=== PATIENT | female | born 1935 | race Caucasian/White ===

== ENCOUNTER 2022-08-16 11:02 | Inpatient (IN) | payer MEDICARE, OTHER ==
[2022-08-16] MEDS ORDERED: Acetaminophen 650 MG Suppository PR PRN (11:32)
[2022-08-16] MEDS ORDERED: Bisacodyl 5 MG TAB PO PRN (11:32)
[2022-08-16] MEDS ORDERED: Sodium Chloride 0.65% Nasal 44 ML BOT EA NARE PRN (11:32)
[2022-08-16] MEDS ORDERED: Cepastat Lozenges 1 LOZ PO PRN (11:32)
[2022-08-16] MEDS ORDERED: Bisacodyl 10 MG SUPP PR PRN (11:32)
[2022-08-16] MEDS ORDERED: Guaifenesin DM 100-10/5 ML UDCUP PO PRN (11:32)
[2022-08-16] MEDS ORDERED: Ondansetron ODT 4 MG TAB SL PRN (11:32)
[2022-08-16] MEDS ORDERED: Artificial Tear Sol 15 ML BOT EA EYE PRN (11:32)
[2022-08-16] MEDS ORDERED: cloNIDine 0.1 MG TAB PO PRN (11:32)
[2022-08-16] MEDS ORDERED: Ipratropium/Albuterol 3 ML NEB NEB PRN (13:43)
[2022-08-16] MEDS ORDERED: Ondansetron ODT 4 MG TAB PO PRN (13:59)
[2022-08-16] MEDS: Rivaroxaban 10 MG TAB PO SCH (18:05)
[2022-08-16] MEDS: Gabapentin 100 MG CAP PO SCH (20:58)
[2022-08-16] MEDS: Atorvastatin Calcium 40 MG TAB PO SCH (20:58)
[2022-08-16] MEDS: Cefdinir 300 MG CAP PO SCH (20:59)
[2022-08-16] MEDS: Furosemide 40 MG TAB PO SCH (21:25)
[2022-08-17 05:56] LABS: #Basophils 0.1 thou/uL (0.0-0.2); #Lymphocytes 1.9 thou/uL (1.20-3.40); #Monocytes 1.1 thou/uL (0.11-0.59); #Neutrophils 6.4 thou/uL (1.40-6.50); %Basophils 1.2 % (0.0-1.0); %Eosinophils 9.3 % (0.0-10.0); %Lymphocytes 18.4 % (21.0-51.0); %Monocytes 10.2 % (0.0-10.0); %Neutrophils 60.9 % (42.0-75.0); Hemoglobin 11.9 g/dL (12.0-16.0); Mean Corpuscular HGB CONC 32.4 g/dL (32.0-36.0); Mean Corpuscular Hemoglobin 27.3 pg (27.0-31.0); Mean Corpuscular Volume 84.1 fl (78.0-98.0); Mean Platelet Volume 7.9 fL (7.4-10.4); Platelet Count 375 10x3/uL (130-400); RBC Distribution Width 18.5 % (11.5-14.5); Red Blood Cell (RBC) Count 4.37 mill/uL (4.20-5.40); White Blood Cell (WBC) Count 10.5 10x3/uL (4.8-10.8)
[2022-08-17 06:08] LABS: Anion Gap 16 mmol/L (10-20); BUN (Urea Nitrogen) 28 mg/dL (9.8-20.1); Calc. Creatinine Clearance 43 mL/min (70-130); Calcium 9.4 mg/dL (7.8-10.44); Carbon Dioxide 28 mmol/L (23-31); Chloride 96 mmol/L (98-107); Estimated GFR 57; Glucose 103 mg/dL (83-110); Potassium 3.5 mmol/L (3.5-5.1); Sodium 136 mmol/L (136-145)
[2022-08-17] MEDS: Atenolol 25 MG TAB PO SCH (09:14)
[2022-08-17] MEDS: Cefdinir 300 MG CAP PO SCH ×2 (09:15→20:41)
[2022-08-17] MEDS: Gabapentin 100 MG CAP PO SCH ×2 (09:15→20:42)
[2022-08-17] MEDS: Furosemide 40 MG TAB PO SCH ×2 (09:16→15:52)
[2022-08-17] MEDS: Rivaroxaban 10 MG TAB PO SCH (17:00)
[2022-08-17] MEDS: Atorvastatin Calcium 40 MG TAB PO SCH (20:42)
[2022-08-18] MEDS: Furosemide 40 MG TAB PO SCH ×2 (06:16→14:42)
[2022-08-18] MEDS: Cefdinir 300 MG CAP PO SCH (08:18)
[2022-08-18] MEDS: Gabapentin 100 MG CAP PO SCH ×2 (08:18→21:22)
[2022-08-18] MEDS: Atenolol 25 MG TAB PO SCH (08:19)
[2022-08-18] MEDS: Rivaroxaban 10 MG TAB PO SCH (16:48)
[2022-08-18] MEDS: Atorvastatin Calcium 40 MG TAB PO SCH (21:22)
[2022-08-19] MEDS: Furosemide 40 MG TAB PO SCH ×3 (05:11→15:42)
[2022-08-19] MEDS: Senokot S 8.6-50 MG TAB PO PRN (06:09)
[2022-08-19] MEDS: Gabapentin 100 MG CAP PO SCH ×2 (08:09→20:29)
[2022-08-19] MEDS: Atenolol 25 MG TAB PO SCH (08:10)
[2022-08-19] MEDS ORDERED: Acetaminophen 325 MG TAB ONE ×2 (16:38)
[2022-08-19] MEDS: Acetaminophen 325 MG TAB PO PRN (16:41)
[2022-08-19] MEDS: Rivaroxaban 10 MG TAB PO SCH (16:42)
[2022-08-19] MEDS: Atorvastatin Calcium 40 MG TAB PO SCH (20:30)
[2022-08-20] MEDS: Furosemide 40 MG TAB PO SCH ×2 (05:16→14:34)
[2022-08-20] MEDS: Atenolol 25 MG TAB PO SCH (09:32)
[2022-08-20] MEDS: Gabapentin 100 MG CAP PO SCH ×2 (09:33→21:08)
[2022-08-20] MEDS: Rivaroxaban 10 MG TAB PO SCH (17:07)
[2022-08-20] MEDS: Atorvastatin Calcium 40 MG TAB PO SCH (21:08)
[2022-08-20] MEDS: Clotrimazole 1% Cream 15 GM TUBE TOP SCH (21:09)
[2022-08-21] MEDS: Furosemide 40 MG TAB PO SCH ×2 (06:06→13:55)
[2022-08-21] MEDS: Atenolol 25 MG TAB PO SCH (08:26)
[2022-08-21] MEDS: Gabapentin 100 MG CAP PO SCH ×2 (08:27→20:17)
[2022-08-21] MEDS: Clotrimazole 1% Cream 15 GM TUBE TOP SCH ×2 (08:28→20:21)
[2022-08-21] MEDS: Acetaminophen 325 MG TAB PO PRN (16:10)
[2022-08-21] MEDS: Rivaroxaban 10 MG TAB PO SCH (16:10)
[2022-08-21] MEDS: Atorvastatin Calcium 40 MG TAB PO SCH (20:16)
[2022-08-21] MEDS: traMADol HCl 50 MG TAB PO PRN (20:16)
[2022-08-22] MEDS: Furosemide 40 MG TAB PO SCH ×2 (05:30→13:45)
[2022-08-22] MEDS: Atenolol 25 MG TAB PO SCH (08:09)
[2022-08-22] MEDS: Gabapentin 100 MG CAP PO SCH ×2 (08:09→21:09)
[2022-08-22] MEDS: Clotrimazole 1% Cream 15 GM TUBE TOP SCH ×2 (08:10→21:09)
[2022-08-22] MEDS: Acetaminophen 325 MG TAB PO PRN (13:45)
[2022-08-22] MEDS: Rivaroxaban 10 MG TAB PO SCH (17:52)
[2022-08-22] MEDS: Atorvastatin Calcium 40 MG TAB PO SCH (21:09)
[2022-08-23] MEDS: Furosemide 40 MG TAB PO SCH ×2 (05:24→14:16)
[2022-08-23 06:08] LABS: Hemoglobin 10.8 g/dL (12.0-16.0); Platelet Count 410 10x3/uL (130-400)
[2022-08-23] MEDS: Gabapentin 100 MG CAP PO SCH ×2 (08:13→20:03)
[2022-08-23] MEDS: Atenolol 25 MG TAB PO SCH (08:14)
[2022-08-23] MEDS: Clotrimazole 1% Cream 15 GM TUBE TOP SCH ×2 (08:15→20:31)
[2022-08-23] MEDS: Acetaminophen 325 MG TAB PO PRN (16:53)
[2022-08-23] MEDS: Rivaroxaban 10 MG TAB PO SCH (16:55)
[2022-08-23] MEDS: traMADol HCl 50 MG TAB PO PRN (19:42)
[2022-08-23] MEDS: Atorvastatin Calcium 40 MG TAB PO SCH (20:04)
[2022-08-24] MEDS: Furosemide 40 MG TAB PO SCH ×2 (06:35→14:36)
[2022-08-24] MEDS: Atenolol 25 MG TAB PO SCH (08:23)
[2022-08-24] MEDS: Gabapentin 100 MG CAP PO SCH ×2 (08:23→20:14)
[2022-08-24] MEDS: Clotrimazole 1% Cream 15 GM TUBE TOP SCH ×2 (08:24→20:15)
[2022-08-24] MEDS: Rivaroxaban 10 MG TAB PO SCH (17:03)
[2022-08-24] MEDS: Atorvastatin Calcium 40 MG TAB PO SCH (20:14)
[2022-08-24] MEDS: Acetaminophen 325 MG TAB PO PRN (23:13)
[2022-08-25] MEDS: Furosemide 40 MG TAB PO SCH ×2 (06:12→14:17)
[2022-08-25] MEDS: Clotrimazole 1% Cream 15 GM TUBE TOP SCH ×2 (08:13→20:47)
[2022-08-25] MEDS: Atenolol 25 MG TAB PO SCH (08:14)
[2022-08-25] MEDS: Gabapentin 100 MG CAP PO SCH ×2 (08:14→20:50)
[2022-08-25] MEDS: Rivaroxaban 10 MG TAB PO SCH (16:13)
[2022-08-25] MEDS: Atorvastatin Calcium 40 MG TAB PO SCH (20:47)
[2022-08-25] MEDS: Nystatin Powder 15 GM BOT TOP SCH (20:47)
[2022-08-25] MEDS: Acetaminophen 325 MG TAB PO PRN (22:33)
[2022-08-26] MEDS: Furosemide 40 MG TAB PO SCH ×2 (06:00→14:08)
[2022-08-26 07:05] LABS: #Basophils 0.1 thou/uL (0.0-0.2); #Eosinphils 1.1 thou/uL (0.0-0.7); #Lymphocytes 2.2 thou/uL (1.20-3.40); #Monocytes 0.9 thou/uL (0.11-0.59); #Neutrophils 3.8 thou/uL (1.40-6.50); %Basophils 1.5 % (0.0-1.0); %Eosinophils 13.8 % (0.0-10.0); %Monocytes 11.3 % (0.0-10.0); %Neutrophils 46.3 % (42.0-75.0); Mean Corpuscular HGB CONC 30.7 g/dL (32.0-36.0); Mean Corpuscular Hemoglobin 26.9 pg (27.0-31.0); Mean Corpuscular Volume 87.6 fl (78.0-98.0); Mean Platelet Volume 7.6 fL (7.4-10.4); Platelet Count 443 10x3/uL (130-400); RBC Distribution Width 18.6 % (11.5-14.5); Red Blood Cell (RBC) Count 4.11 mill/uL (4.20-5.40); White Blood Cell (WBC) Count 8.2 10x3/uL (4.8-10.8)
[2022-08-26 07:09] LABS: Anion Gap 14 mmol/L (10-20); BUN (Urea Nitrogen) 20 mg/dL (9.8-20.1); Calc. Creatinine Clearance 46 mL/min (70-130); Calcium 8.8 mg/dL (7.8-10.44); Chloride 102 mmol/L (98-107); Estimated GFR 59; Glucose 91 mg/dL (83-110); Potassium 3.4 mmol/L (3.5-5.1)
[2022-08-26 07:16] LABS: Carbon Dioxide 25 mmol/L (23-31); Sodium 138 mmol/L (136-145)
[2022-08-26] MEDS: Gabapentin 100 MG CAP PO SCH ×2 (08:05→20:06)
[2022-08-26] MEDS: Clotrimazole 1% Cream 15 GM TUBE TOP SCH ×2 (08:06→20:06)
[2022-08-26] MEDS: Atenolol 25 MG TAB PO SCH (08:06)
[2022-08-26] MEDS: Nystatin Powder 15 GM BOT TOP SCH ×2 (08:06→20:08)
[2022-08-26] MEDS: Senokot S 8.6-50 MG TAB PO PRN (14:08)
[2022-08-26] MEDS: Rivaroxaban 10 MG TAB PO SCH (17:00)
[2022-08-26] MEDS: Atorvastatin Calcium 40 MG TAB PO SCH (20:06)
[2022-08-27] MEDS: Furosemide 40 MG TAB PO SCH ×2 (05:19→14:25)
[2022-08-27] MEDS: Nystatin Powder 15 GM BOT TOP SCH ×2 (07:37→20:53)
[2022-08-27] MEDS: Clotrimazole 1% Cream 15 GM TUBE TOP SCH ×2 (07:37→20:53)
[2022-08-27] MEDS: Atenolol 25 MG TAB PO SCH (07:41)
[2022-08-27] MEDS: Gabapentin 100 MG CAP PO SCH ×2 (07:42→20:54)
[2022-08-27] MEDS: Rivaroxaban 10 MG TAB PO SCH (17:30)
[2022-08-27] MEDS: Atorvastatin Calcium 40 MG TAB PO SCH (20:54)
[2022-08-28 05:31] LABS: #Basophils 0.1 thou/uL (0.0-0.2); #Eosinphils 0.9 thou/uL (0.0-0.7); #Monocytes 1.2 thou/uL (0.11-0.59); #Neutrophils 5.9 thou/uL (1.40-6.50); %Basophils 1.3 % (0.0-1.0); %Eosinophils 8.5 % (0.0-10.0); %Lymphocytes 19.7 % (21.0-51.0); %Monocytes 11.6 % (0.0-10.0); %Neutrophils 58.9 % (42.0-75.0); Mean Corpuscular HGB CONC 31.8 g/dL (32.0-36.0); Mean Corpuscular Hemoglobin 27.2 pg (27.0-31.0); Mean Corpuscular Volume 85.6 fl (78.0-98.0); Mean Platelet Volume 7.9 fL (7.4-10.4); Platelet Count 400 10x3/uL (130-400); RBC Distribution Width 17.8 % (11.5-14.5); Red Blood Cell (RBC) Count 4.04 mill/uL (4.20-5.40); White Blood Cell (WBC) Count 10.1 10x3/uL (4.8-10.8)
[2022-08-28 05:42] LABS: Anion Gap 14 mmol/L (10-20); BUN (Urea Nitrogen) 21 mg/dL (9.8-20.1); Calc. Creatinine Clearance 49 mL/min (70-130); Calcium 8.9 mg/dL (7.8-10.44); Carbon Dioxide 27 mmol/L (23-31); Chloride 100 mmol/L (98-107); Estimated GFR 63; Glucose 98 mg/dL (83-110); Potassium 3.5 mmol/L (3.5-5.1); Sodium 137 mmol/L (136-145)
[2022-08-28] MEDS: Furosemide 40 MG TAB PO SCH ×2 (05:42→13:50)
[2022-08-28] MEDS: Gabapentin 100 MG CAP PO SCH ×2 (08:19→20:38)
[2022-08-28] MEDS: Atenolol 25 MG TAB PO SCH (08:20)
[2022-08-28] MEDS: Nystatin Powder 15 GM BOT TOP SCH ×2 (08:56→20:38)
[2022-08-28] MEDS: Clotrimazole 1% Cream 15 GM TUBE TOP SCH ×2 (08:57→20:38)
[2022-08-28] MEDS: Acetaminophen 325 MG TAB PO PRN (13:50)
[2022-08-28] MEDS: Calcium Carbonate 500 MG ChewTAB PO PRN (15:21)
[2022-08-28] MEDS: Rivaroxaban 10 MG TAB PO SCH (16:08)
[2022-08-28] MEDS: Atorvastatin Calcium 40 MG TAB PO SCH (20:39)
[2022-08-29] MEDS: Furosemide 40 MG TAB PO SCH ×2 (05:43→13:12)
[2022-08-29] MEDS: Atenolol 25 MG TAB PO SCH (08:17)
[2022-08-29] MEDS: Gabapentin 100 MG CAP PO SCH ×2 (08:17→21:45)
[2022-08-29] MEDS: Clotrimazole 1% Cream 15 GM TUBE TOP SCH ×2 (08:17→21:46)
[2022-08-29] MEDS: Nystatin Powder 15 GM BOT TOP SCH (08:18)
[2022-08-29] MEDS: Acetaminophen 325 MG TAB PO PRN (13:10)
[2022-08-29] MEDS: Rivaroxaban 10 MG TAB PO SCH (17:52)
[2022-08-29] MEDS: Atorvastatin Calcium 40 MG TAB PO SCH (21:46)
[2022-08-30] MEDS: Nystatin Powder 15 GM BOT TOP SCH ×3 (00:03→20:22)
[2022-08-30] MEDS: Acetaminophen 325 MG TAB PO PRN ×2 (00:07→19:33)
[2022-08-30] MEDS: Furosemide 40 MG TAB PO SCH ×2 (05:55→13:20)
[2022-08-30 06:03] LABS: #Basophils 0.1 thou/uL (0.0-0.2); #Eosinphils 0.9 thou/uL (0.0-0.7); #Lymphocytes 2.1 thou/uL (1.20-3.40); #Monocytes 1.2 thou/uL (0.11-0.59); #Neutrophils 5.8 thou/uL (1.40-6.50); %Basophils 1.3 % (0.0-1.0); %Monocytes 11.5 % (0.0-10.0); %Neutrophils 57.3 % (42.0-75.0); Hemoglobin 10.4 g/dL (12.0-16.0); Mean Corpuscular HGB CONC 31.6 g/dL (32.0-36.0); Mean Corpuscular Hemoglobin 27.2 pg (27.0-31.0); Mean Corpuscular Volume 86.1 fl (78.0-98.0); Platelet Count 397 10x3/uL (130-400); RBC Distribution Width 17.3 % (11.5-14.5); Red Blood Cell (RBC) Count 3.83 mill/uL (4.20-5.40); White Blood Cell (WBC) Count 10.1 10x3/uL (4.8-10.8)
[2022-08-30 06:18] LABS: Anion Gap 13 mmol/L (10-20); BUN (Urea Nitrogen) 19 mg/dL (9.8-20.1); Calc. Creatinine Clearance 48 mL/min (70-130); Carbon Dioxide 26 mmol/L (23-31); Chloride 102 mmol/L (98-107); Potassium 3.4 mmol/L (3.5-5.1); Sodium 138 mmol/L (136-145)
[2022-08-30 06:19] LABS: Calcium 8.7 mg/dL (7.8-10.44); Estimated GFR 62; Glucose 91 mg/dL (83-110)
[2022-08-30] MEDS: Clotrimazole 1% Cream 15 GM TUBE TOP SCH ×2 (08:53→20:22)
[2022-08-30] MEDS: Gabapentin 100 MG CAP PO SCH ×2 (08:54→20:20)
[2022-08-30] MEDS: Atenolol 25 MG TAB PO SCH (08:55)
[2022-08-30] MEDS: Calcium Carbonate 500 MG ChewTAB PO PRN (13:20)
[2022-08-30] MEDS: Rivaroxaban 10 MG TAB PO SCH (17:43)
[2022-08-30] MEDS: Atorvastatin Calcium 40 MG TAB PO SCH (20:20)
[2022-08-30] MEDS: traMADol HCl 50 MG TAB PO PRN (20:21)
[2022-08-31] MEDS: Furosemide 40 MG TAB PO SCH ×2 (05:23→14:10)
[2022-08-31] MEDS ORDERED: traMADol HCl 50 MG TAB PO PRN (06:30)
[2022-08-31] MEDS: Gabapentin 100 MG CAP PO SCH ×2 (09:43→21:01)
[2022-08-31] MEDS: Atenolol 25 MG TAB PO SCH (09:43)
[2022-08-31] MEDS: Clotrimazole 1% Cream 15 GM TUBE TOP SCH ×2 (09:44→21:02)
[2022-08-31] MEDS: Nystatin Powder 15 GM BOT TOP SCH ×2 (09:44→21:02)
[2022-08-31 09:48] LABS: Anion Gap 16 mmol/L (10-20); BUN (Urea Nitrogen) 17 mg/dL (9.8-20.1); Calc. Creatinine Clearance 47 mL/min (70-130); Calcium 9.3 mg/dL (7.8-10.44); Carbon Dioxide 25 mmol/L (23-31); Chloride 99 mmol/L (98-107); Estimated GFR 60; Glucose 164 mg/dL (83-110); Potassium 3.8 mmol/L (3.5-5.1); Sodium 136 mmol/L (136-145)
[2022-08-31] MEDS: Calcium Carbonate 500 MG ChewTAB PO PRN (14:08)
[2022-08-31] MEDS: Rivaroxaban 10 MG TAB PO SCH (17:43)
[2022-08-31] MEDS: Atorvastatin Calcium 40 MG TAB PO SCH (21:02)
[2022-09-01] MEDS: Furosemide 40 MG TAB PO SCH ×2 (05:22→14:46)
[2022-09-01] MEDS: Gabapentin 100 MG CAP PO SCH ×2 (09:10→20:52)
[2022-09-01] MEDS: Atenolol 25 MG TAB PO SCH (09:10)
[2022-09-01] MEDS: Clotrimazole 1% Cream 15 GM TUBE TOP SCH ×2 (09:14→20:46)
[2022-09-01] MEDS: Nystatin Powder 15 GM BOT TOP SCH ×2 (09:15→20:46)
[2022-09-01] MEDS: Rivaroxaban 10 MG TAB PO SCH (17:12)
[2022-09-01] MEDS: Atorvastatin Calcium 40 MG TAB PO SCH (20:52)
[2022-09-02] MEDS: Furosemide 40 MG TAB PO SCH ×2 (05:36→14:03)
[2022-09-02 06:05] LABS: #Basophils 0.1 thou/uL (0.0-0.2); #Eosinphils 0.9 thou/uL (0.0-0.7); #Lymphocytes 1.8 thou/uL (1.20-3.40); #Monocytes 0.9 thou/uL (0.11-0.59); #Neutrophils 4.9 thou/uL (1.40-6.50); %Basophils 1.2 % (0.0-1.0); %Eosinophils 10.4 % (0.0-10.0); %Lymphocytes 21.2 % (21.0-51.0); %Monocytes 10.5 % (0.0-10.0); %Neutrophils 56.7 % (42.0-75.0); Hemoglobin 10.8 g/dL (12.0-16.0); Mean Corpuscular HGB CONC 30.9 g/dL (32.0-36.0); Mean Corpuscular Volume 87.2 fl (78.0-98.0); Mean Platelet Volume 7.5 fL (7.4-10.4); Platelet Count 380 10x3/uL (130-400); RBC Distribution Width 17.7 % (11.5-14.5); White Blood Cell (WBC) Count 8.6 10x3/uL (4.8-10.8)
[2022-09-02 06:26] LABS: Anion Gap 12 mmol/L (10-20); BUN (Urea Nitrogen) 13 mg/dL (9.8-20.1); Calc. Creatinine Clearance 56 mL/min (70-130); Carbon Dioxide 25 mmol/L (23-31); Chloride 105 mmol/L (98-107); Estimated GFR 74; Glucose 100 mg/dL (83-110); Potassium 3.6 mmol/L (3.5-5.1); Sodium 138 mmol/L (136-145)
[2022-09-02] MEDS: Atenolol 25 MG TAB PO SCH (09:25)
[2022-09-02] MEDS: Gabapentin 100 MG CAP PO SCH ×2 (09:26→20:41)
[2022-09-02] MEDS: Clotrimazole 1% Cream 15 GM TUBE TOP SCH ×2 (09:27→20:42)
[2022-09-02] MEDS: Nystatin Powder 15 GM BOT TOP SCH ×2 (09:27→20:41)
[2022-09-02] MEDS: Acetaminophen 325 MG TAB PO PRN (11:35)
[2022-09-02] MEDS: Calcium Carbonate 500 MG ChewTAB PO PRN ×2 (14:10→22:17)
[2022-09-02] MEDS: Rivaroxaban 10 MG TAB PO SCH (17:33)
[2022-09-02] MEDS: Atorvastatin Calcium 40 MG TAB PO SCH (20:41)
[2022-09-03] MEDS: Furosemide 40 MG TAB PO SCH ×2 (05:14→13:11)
[2022-09-03] MEDS: Gabapentin 100 MG CAP PO SCH ×2 (08:42→20:54)
[2022-09-03] MEDS: Atenolol 25 MG TAB PO SCH (08:42)
[2022-09-03] MEDS: Nystatin Powder 15 GM BOT TOP SCH ×2 (08:43→20:55)
[2022-09-03] MEDS: Clotrimazole 1% Cream 15 GM TUBE TOP SCH ×2 (08:43→20:55)
[2022-09-03] MEDS: Acetaminophen 325 MG TAB PO PRN (11:26)
[2022-09-03] MEDS: Rivaroxaban 10 MG TAB PO SCH (17:09)
[2022-09-03] MEDS: Atorvastatin Calcium 40 MG TAB PO SCH (20:54)
[2022-09-04] MEDS: Furosemide 40 MG TAB PO SCH ×2 (05:27→14:26)
[2022-09-04 06:02] LABS: #Basophils 0.1 thou/uL (0.0-0.2); #Eosinphils 0.9 thou/uL (0.0-0.7); #Neutrophils 5.4 thou/uL (1.40-6.50); %Basophils 1.1 % (0.0-1.0); %Eosinophils 9.3 % (0.0-10.0); %Lymphocytes 21.3 % (21.0-51.0); %Monocytes 10.6 % (0.0-10.0); %Neutrophils 57.7 % (42.0-75.0); Hemoglobin 11.1 g/dL (12.0-16.0); Mean Corpuscular HGB CONC 31.8 g/dL (32.0-36.0); Mean Corpuscular Hemoglobin 27.4 pg (27.0-31.0); Mean Corpuscular Volume 86.3 fl (78.0-98.0); Mean Platelet Volume 7.7 fL (7.4-10.4); Platelet Count 371 10x3/uL (130-400); RBC Distribution Width 17.8 % (11.5-14.5); Red Blood Cell (RBC) Count 4.03 mill/uL (4.20-5.40); White Blood Cell (WBC) Count 9.4 10x3/uL (4.8-10.8)
[2022-09-04 06:19] LABS: Anion Gap 13 mmol/L (10-20); BUN (Urea Nitrogen) 18 mg/dL (9.8-20.1); Calc. Creatinine Clearance 53 mL/min (70-130); Calcium 8.8 mg/dL (7.8-10.44); Carbon Dioxide 25 mmol/L (23-31); Chloride 104 mmol/L (98-107); Estimated GFR 69; Glucose 102 mg/dL (83-110); Potassium 3.6 mmol/L (3.5-5.1); Sodium 138 mmol/L (136-145)
[2022-09-04] MEDS: Clotrimazole 1% Cream 15 GM TUBE TOP SCH ×2 (08:46→21:38)
[2022-09-04] MEDS: Nystatin Powder 15 GM BOT TOP SCH ×2 (08:46→21:38)
[2022-09-04] MEDS: Atenolol 25 MG TAB PO SCH (08:51)
[2022-09-04] MEDS: Gabapentin 100 MG CAP PO SCH ×2 (08:52→21:35)
[2022-09-04] MEDS: Rivaroxaban 10 MG TAB PO SCH (18:11)
[2022-09-04] MEDS: Senokot S 8.6-50 MG TAB PO PRN (18:12)
[2022-09-04] MEDS: Atorvastatin Calcium 40 MG TAB PO SCH (21:36)
[2022-09-05] MEDS: Furosemide 40 MG TAB PO SCH ×2 (05:59→13:43)
[2022-09-05] MEDS: Atenolol 25 MG TAB PO SCH (08:25)
[2022-09-05] MEDS: Gabapentin 100 MG CAP PO SCH ×2 (08:26→21:02)
[2022-09-05] MEDS: Clotrimazole 1% Cream 15 GM TUBE TOP SCH ×2 (08:28→21:01)
[2022-09-05] MEDS: Nystatin Powder 15 GM BOT TOP SCH ×2 (08:28→21:01)
[2022-09-05] MEDS: Acetaminophen 325 MG TAB PO PRN (13:43)
[2022-09-05] MEDS: Calcium Carbonate 500 MG ChewTAB PO PRN (13:45)
[2022-09-05] MEDS: Rivaroxaban 10 MG TAB PO SCH (16:40)
[2022-09-05] MEDS: Atorvastatin Calcium 40 MG TAB PO SCH (21:01)
[2022-09-06] MEDS: Furosemide 40 MG TAB PO SCH ×4 (05:27→13:52)
[2022-09-06 06:10] LABS: #Basophils 0.1 thou/uL (0.0-0.2); #Eosinphils 0.9 thou/uL (0.0-0.7); #Lymphocytes 2.3 thou/uL (1.20-3.40); #Monocytes 1.1 thou/uL (0.11-0.59); #Neutrophils 8.3 thou/uL (1.40-6.50); %Eosinophils 6.9 % (0.0-10.0); %Lymphocytes 17.9 % (21.0-51.0); %Monocytes 8.4 % (0.0-10.0); %Neutrophils 65.8 % (42.0-75.0); Hemoglobin 10.6 g/dL (12.0-16.0); Mean Corpuscular HGB CONC 30.9 g/dL (32.0-36.0); Mean Corpuscular Hemoglobin 27.1 pg (27.0-31.0); Mean Platelet Volume 7.8 fL (7.4-10.4); Platelet Count 362 10x3/uL (130-400); RBC Distribution Width 17.7 % (11.5-14.5); Red Blood Cell (RBC) Count 3.92 mill/uL (4.20-5.40); White Blood Cell (WBC) Count 12.6 10x3/uL (4.8-10.8)
[2022-09-06 06:27] LABS: Anion Gap 16 mmol/L (10-20); BUN (Urea Nitrogen) 24 mg/dL (9.8-20.1); Calc. Creatinine Clearance 52 mL/min (70-130); Calcium 8.8 mg/dL (7.8-10.44); Carbon Dioxide 21 mmol/L (23-31); Chloride 104 mmol/L (98-107); Estimated GFR 68; Glucose 102 mg/dL (83-110); Potassium 3.6 mmol/L (3.5-5.1); Sodium 137 mmol/L (136-145)
[2022-09-06] MEDS: Gabapentin 100 MG CAP PO SCH ×2 (08:55→20:09)
[2022-09-06] MEDS: Atenolol 25 MG TAB PO SCH (08:59)
[2022-09-06] MEDS: Nystatin Powder 15 GM BOT TOP SCH ×2 (08:59→20:10)
[2022-09-06] MEDS: Clotrimazole 1% Cream 15 GM TUBE TOP SCH ×2 (09:00→20:09)
[2022-09-06] MEDS: Acetaminophen 325 MG TAB PO PRN (13:51)
[2022-09-06] MEDS: Rivaroxaban 10 MG TAB PO SCH (16:19)
[2022-09-06] MEDS: Atorvastatin Calcium 40 MG TAB PO SCH (20:09)
[2022-09-07 05:42] LABS: #Basophils 0.1 thou/uL (0.0-0.2); #Eosinphils 0.9 thou/uL (0.0-0.7); #Monocytes 1.1 thou/uL (0.11-0.59); #Neutrophils 7.3 thou/uL (1.40-6.50); %Eosinophils 7.9 % (0.0-10.0); %Lymphocytes 17.4 % (21.0-51.0); %Monocytes 9.4 % (0.0-10.0); %Neutrophils 64.4 % (42.0-75.0); Hemoglobin 10.3 g/dL (12.0-16.0); Mean Corpuscular HGB CONC 30.8 g/dL (32.0-36.0); Mean Corpuscular Volume 87.6 fl (78.0-98.0); Platelet Count 337 10x3/uL (130-400); RBC Distribution Width 17.5 % (11.5-14.5); Red Blood Cell (RBC) Count 3.82 mill/uL (4.20-5.40); White Blood Cell (WBC) Count 11.4 10x3/uL (4.8-10.8)
[2022-09-07] MEDS: Furosemide 40 MG TAB PO SCH ×2 (05:46→13:53)
[2022-09-07 06:03] LABS: Anion Gap 12 mmol/L (10-20); BUN (Urea Nitrogen) 20 mg/dL (9.8-20.1); Calc. Creatinine Clearance 54 mL/min (70-130); Calcium 8.8 mg/dL (7.8-10.44); Carbon Dioxide 26 mmol/L (23-31); Chloride 106 mmol/L (98-107); Estimated GFR 70; Glucose 93 mg/dL (83-110); Potassium 3.6 mmol/L (3.5-5.1); Sodium 140 mmol/L (136-145)
[2022-09-07] MEDS: Nystatin Powder 15 GM BOT TOP SCH ×2 (08:27→20:48)
[2022-09-07] MEDS: Clotrimazole 1% Cream 15 GM TUBE TOP SCH ×2 (08:27→20:47)
[2022-09-07] MEDS: Gabapentin 100 MG CAP PO SCH ×2 (08:28→20:47)
[2022-09-07] MEDS: Atenolol 25 MG TAB PO SCH (08:29)
[2022-09-07] MEDS: Acetaminophen 325 MG TAB PO PRN (13:52)
[2022-09-07] MEDS: Rivaroxaban 10 MG TAB PO SCH (16:52)
[2022-09-07] MEDS: Atorvastatin Calcium 40 MG TAB PO SCH (20:47)
[2022-09-07] MEDS: Benzonatate 100 MG CAP PO PRN (20:50)
[2022-09-08] MEDS: Furosemide 40 MG TAB PO SCH ×2 (05:37→14:02)
[2022-09-08] MEDS: Clotrimazole 1% Cream 15 GM TUBE TOP SCH ×2 (08:13→20:18)
[2022-09-08] MEDS: Nystatin Powder 15 GM BOT TOP SCH ×2 (08:13→20:18)
[2022-09-08] MEDS: Gabapentin 100 MG CAP PO SCH ×2 (08:14→20:16)
[2022-09-08] MEDS: Atenolol 25 MG TAB PO SCH (08:15)
[2022-09-08] MEDS: Acetaminophen 325 MG TAB PO PRN (14:01)
[2022-09-08] MEDS: Calcium Carbonate 500 MG ChewTAB PO PRN (14:21)
[2022-09-08] MEDS: Rivaroxaban 10 MG TAB PO SCH (16:40)
[2022-09-08] MEDS: Benzonatate 100 MG CAP PO PRN (16:40)
[2022-09-08] MEDS: Atorvastatin Calcium 40 MG TAB PO SCH (20:17)
[2022-09-09] MEDS: Furosemide 40 MG TAB PO SCH ×2 (05:59→13:57)
[2022-09-09 06:20] LABS: Hemoglobin 10.8 g/dL (12.0-16.0); Mean Corpuscular HGB CONC 30.3 g/dL (32.0-36.0); Mean Corpuscular Hemoglobin 26.9 pg (27.0-31.0); Mean Corpuscular Volume 88.7 fl (78.0-98.0); Platelet Count 341 10x3/uL (130-400); RBC Distribution Width 17.8 % (11.5-14.5); Red Blood Cell (RBC) Count 4.02 mill/uL (4.20-5.40); White Blood Cell (WBC) Count 8.8 10x3/uL (4.8-10.8)
[2022-09-09 06:21] LABS: #Basophils 0.1 thou/uL (0.0-0.2); #Eosinphils 0.7 thou/uL (0.0-0.7); #Monocytes 0.8 thou/uL (0.11-0.59); #Neutrophils 5.1 thou/uL (1.40-6.50); %Basophils 1.4 % (0.0-1.0); %Eosinophils 8.3 % (0.0-10.0); %Lymphocytes 22.7 % (21.0-51.0); %Monocytes 9.6 % (0.0-10.0); Manual Diff?? NO; Mean Platelet Volume 7.7 fL (7.4-10.4)
[2022-09-09 06:34] LABS: Anion Gap 14 mmol/L (10-20); BUN (Urea Nitrogen) 17 mg/dL (9.8-20.1); Calc. Creatinine Clearance 54 mL/min (70-130); Chloride 104 mmol/L (98-107); Estimated GFR 72; Glucose 95 mg/dL (83-110); Potassium 3.9 mmol/L (3.5-5.1); Sodium 139 mmol/L (136-145)
[2022-09-09 06:35] LABS: Carbon Dioxide 25 mmol/L (23-31)
[2022-09-09] MEDS: Atenolol 25 MG TAB PO SCH (08:31)
[2022-09-09] MEDS: Gabapentin 100 MG CAP PO SCH ×2 (08:32→20:50)
[2022-09-09] MEDS: Clotrimazole 1% Cream 15 GM TUBE TOP SCH ×2 (08:32→20:50)
[2022-09-09] MEDS: Acetaminophen 325 MG TAB PO PRN (10:38)
[2022-09-09] MEDS: Rivaroxaban 10 MG TAB PO SCH (17:11)
[2022-09-09] MEDS: Atorvastatin Calcium 40 MG TAB PO SCH (20:51)
[2022-09-10] MEDS: Furosemide 40 MG TAB PO SCH ×2 (05:43→13:45)
[2022-09-10] MEDS: Gabapentin 100 MG CAP PO SCH ×2 (07:44→20:22)
[2022-09-10] MEDS: Atenolol 25 MG TAB PO SCH (07:45)
[2022-09-10] MEDS: Clotrimazole 1% Cream 15 GM TUBE TOP SCH ×2 (07:46→20:22)
[2022-09-10 13:19] VITALS: BMI 24.5
[2022-09-10] MEDS: Acetaminophen 325 MG TAB PO PRN (13:45)
[2022-09-10] MEDS: Calcium Carbonate 500 MG ChewTAB PO PRN (13:47)
[2022-09-10] MEDS: Rivaroxaban 10 MG TAB PO SCH (17:11)
[2022-09-10] MEDS: Atorvastatin Calcium 40 MG TAB PO SCH (20:22)
[2022-09-11] MEDS: Furosemide 40 MG TAB PO SCH (05:10)
[2022-09-11 06:09] LABS: #Basophils 0.1 thou/uL (0.0-0.2); #Eosinphils 0.6 thou/uL (0.0-0.7); #Lymphocytes 1.9 thou/uL (1.20-3.40); #Monocytes 0.8 thou/uL (0.11-0.59); #Neutrophils 3.8 thou/uL (1.40-6.50); %Basophils 1.6 % (0.0-1.0); %Eosinophils 7.9 % (0.0-10.0); %Lymphocytes 26.4 % (21.0-51.0); %Monocytes 11.5 % (0.0-10.0); %Neutrophils 52.6 % (42.0-75.0); Hemoglobin 10.7 g/dL (12.0-16.0); Mean Corpuscular Hemoglobin 27.4 pg (27.0-31.0); Mean Corpuscular Volume 85.6 fl (78.0-98.0); Mean Platelet Volume 7.6 fL (7.4-10.4); Platelet Count 350 10x3/uL (130-400); RBC Distribution Width 16.7 % (11.5-14.5); Red Blood Cell (RBC) Count 3.91 mill/uL (4.20-5.40); White Blood Cell (WBC) Count 7.3 10x3/uL (4.8-10.8)
[2022-09-11 06:29] LABS: Anion Gap 13 mmol/L (10-20); BUN (Urea Nitrogen) 25 mg/dL (9.8-20.1); Calc. Creatinine Clearance 52 mL/min (70-130); Calcium 8.9 mg/dL (7.8-10.44); Carbon Dioxide 27 mmol/L (23-31); Chloride 104 mmol/L (98-107); Estimated GFR 68; Glucose 94 mg/dL (83-110); Potassium 3.6 mmol/L (3.5-5.1); Sodium 140 mmol/L (136-145)
[2022-09-11 08:01] VITALS: BP 124/59; TEMP 98.2
[2022-09-11] MEDS: Gabapentin 100 MG CAP PO SCH (09:40)
[2022-09-11] MEDS: Atenolol 25 MG TAB PO SCH (09:41)
[2022-09-11] MEDS: Clotrimazole 1% Cream 15 GM TUBE TOP SCH (09:42)
== END 2022-09-11 13:33 | disposition home or self-care (01) | DRG 689 ==
LOC: NAV ACUTE 12:37
PROVIDERS: ADMIT Family Medicine; ATTEND Family Medicine
DX: N30.00 Acute cystitis without hematuria (principal); J18.9 Pneumonia, unspecified organism; Z20.822 Contact with and (suspected) exposure to COVID-19; I10 Essential (primary) hypertension; J45.909 Unspecified asthma, uncomplicated; R13.12 Dysphagia, oropharyngeal phase; I48.0 Paroxysmal atrial fibrillation; R21 Rash and other nonspecific skin eruption; R53.81 Other malaise; E78.2 Mixed hyperlipidemia; I69.391 Dysphagia following cerebral infarction; Z88.8 Allergy status to other drugs, medicaments and biological substances; Z79.899 Other long term (current) drug therapy; Z79.01 Long term (current) use of anticoagulants
CPT/HCPCS: 36415; 80048; 82565; 85014; 85018; 85025; 85049; 87811

== ENCOUNTER 2022-09-14 21:13 | Emergency (ER) | payer MEDICARE, OTHER ==
[2022-09-14] MEDS ORDERED: Cefepime 2 GM VIAL ONE (21:52)
[2022-09-14] MEDS ORDERED: Sodium Chloride 0.9% 0 ML ONE (21:53)
[2022-09-14] MEDS ORDERED: Sodium Chloride 0.9% 100 ML ONE (21:55)
[2022-09-14 22:00] LABS: Base Excess-Venous -1.7 mmol/L (-2.0 to 3.0); CO2 Tension (PvCO2) 38.1 mmHg (42.0-51.0); Chloride 107 mmol/L (98-107); Hemoglobin - Calc 13.6 g/dL (12.0-16.0); Potassium 4.2 mmol/L (3.5-5.1); Sodium 139 mmol/L (138-145); T. Carbon Dioxide 24.2 mmol/L (22.0-28.0); vO2 Saturation-calc 73.9 % (60.0-85.0)
[2022-09-14 22:08] LABS: ALT (SGPT) 12 U/L (8-55); AST (SGOT) 13 U/L (5-34); Albumin 3.7 g/dL (3.4-4.8); Alkaline Phosphatase 72 U/L (40-110); Anion Gap 14 mmol/L (10-20); BUN (Urea Nitrogen) 15 mg/dL (9.8-20.1); Bilirubin, Total 0.6 mg/dL (0.2-1.2); Calc. Creatinine Clearance 0 mL/min (70-130); Carbon Dioxide 23 mmol/L (23-31); Chloride 106 mmol/L (98-107); Estimated GFR 62; Globulin 3.4 g/dL (2.4-3.5); Glucose 141 mg/dL (83-110); Lipase 60 U/L (8-78); Potassium 4.4 mmol/L (3.5-5.1); Protein, Total 7.1 g/dL (5.8-8.1); Sodium 139 mmol/L (136-145)
[2022-09-14 22:10] LABS: Band 1 % (5-11); Hemoglobin 12.7 g/dL (12.0-16.0); Lymphocytes 2 % (21-51); MDiff Complete? YES; Mean Corpuscular HGB CONC 32.1 g/dL (32.0-36.0); Mean Corpuscular Hemoglobin 27.6 pg (27.0-31.0); Mean Platelet Volume 8.1 fL (7.4-10.4); Monocytes 2 % (0-10); Neutrophil 95 % (42-75); Platelet Count 414 10x3/uL (130-400); RBC Distribution Width 16.8 % (11.5-14.5); Red Blood Cell (RBC) Count 4.59 mill/uL (4.20-5.40); White Blood Cell (WBC) Count 21.1 10x3/uL (4.8-10.8)
[2022-09-14 22:22] LABS: Bilirubin Negative (Negative); Blood, Urine Trace (Negative); Clarity Slightly Cloudy (Clear); Glucose, Urine (Dipstick) Negative (Negative); Ketone, Urine Negative (Negative); Leukocyte Large (Negative); Nitrite Negative (Negative); Protein, Urine (Dipstick) Negative (Neg-Trace); Specific Gravity, Urine 1.015 (1.005-1.030); Urobilinogen 0.2 mg/dL (Less than 2); pH, Urine 7.5 (5.0-9.0)
[2022-09-14 22:24] LABS: Bacteria/HPF 1+ HPF (None Seen); RBC/HPF 0-3 HPF (0-3); Squamous Epithelial None Seen HPF (0-3); WBC/HPF Greater than 50 HPF (0-3)
[2022-09-14] MEDS ORDERED: Sodium Chloride 0.9% 1,000 ML ONE (22:26)
[2022-09-14 22:31] LABS: SARS-CoV-2 NAA Rapid Test Not Detected (NotDetected)
== END 2022-09-15 | disposition short-term general hospital (02) ==
LOC: NAV ERS 21:13
DX: A41.9 Sepsis, unspecified organism (principal); N39.0 Urinary tract infection, site not specified; R09.02 Hypoxemia; I48.91 Unspecified atrial fibrillation; Z86.73 Personal history of transient ischemic attack (TIA), and cerebral infarction without residual deficits; Z79.01 Long term (current) use of anticoagulants; Z79.899 Other long term (current) drug therapy; Z20.822 Contact with and (suspected) exposure to COVID-19
CPT/HCPCS: 36415; 71045; 80053; 81003; 81015; 82330; 82803; 83605; 83690; 83880; 85014; 85025; 87040; 87086; 93005; 96365; 96375; J0692; J1956; J3490; J7050